=== PATIENT | male | born 1970 | race Caucasian/White ===

== ENCOUNTER 2023-04-09 12:30 | Day surgery (SDC) | payer OTHER ==
[~2023-04-09] VITALS: Ht 195.6 cm; Wt 128.5 kg
[2023-04-09] VITALS (27 sets, daily range): BP systolic 63–111; BP diastolic 37–83; PULSE 49–121; RESP 10–22; TEMP 97.3; O2SAT 92–99
[~2023-04-09 12:30] MED LIST: MIDAZolam 1mg/ml 10ml vial IV ONE; fentaNYL/PF 50MCG/1 ML 2ML syringe IV ONE; normal saline 1000ml 1,000 ML IV SCH
[2023-04-09] MEDS ORDERED: AMI200T PO (12:53)
[2023-04-09] MEDS ORDERED: BISO5TAB20 PO (12:53)
[2023-04-09] MEDS ORDERED: SPIR25TA5 PO (12:53)
[2023-04-09] MEDS ORDERED: RIVA20TA PO (12:53)
[2023-04-09 13:04] LABS: INR 1.3 INR; PROTHROMBIN TIME 13.9 SECONDS (9.0-12.0)
[2023-04-09] MEDS ORDERED: ONDA4TAB12 PO (21:57)
== END 2023-04-09 18:30 | disposition home or self-care (01) ==
LOC: SSTAY O 12:30
PROVIDERS: ATTEND Student in an Organized Health Care Education/Training Program
DX: I48.91 Unspecified atrial fibrillation (principal); I42.9 Cardiomyopathy, unspecified; I34.0 Nonrheumatic mitral (valve) insufficiency; E78.5 Hyperlipidemia, unspecified; Z79.899 Other long term (current) drug therapy; Z88.1 Allergy status to other antibiotic agents
CPT/HCPCS: 36415; 85610; 92960; 93005; 93312; 94760; J2250; J3010; J7030; A4620

== ENCOUNTER 2023-04-09 19:02 | Emergency (ER) | payer OTHER ==
[~2023-04-09] VITALS: Ht 195.6 cm; Wt 124.1 kg
[~2023-04-09 19:02] MED LIST changes: +AMI200T PO; +BISO5TAB20 PO; -MIDAZolam 1mg/ml 10ml vial IV ONE; +RIVA20TA PO; +SPIR25TA5 PO; -fentaNYL/PF 50MCG/1 ML 2ML syringe IV ONE; -normal saline 1000ml 1,000 ML IV SCH
[2023-04-09 19:05] VITALS: TEMP 98.8
[2023-04-09] MEDS ORDERED: normal saline 1000ml 1,000 ML IV ONE (19:15)
[2023-04-09] MEDS: normal saline 500ml IV soln 500 ML IV SCH ×2 (19:24→21:47)
[2023-04-09] MEDS ORDERED: ondansetron/PF 4mg/2ml inj IV ONE (19:30)
[2023-04-09 20:10] LABS: BASOPHILS % (AUTO) 0.2 % (0-1); EOSINOPHILS % (AUTO) 0 % (0-6); HEMATOCRIT 47.7 % (42.0-52.0); HEMOGLOBIN 16.2 g/dl (14.0-17.9); LYMPHOCYTES # (AUTO) 0.6 X10'3 (1.1-4.8); LYMPHOCYTES % (AUTO) 4.6 % (21-51); MEAN CORPUSCULAR HEMOGLOBIN 29.8 PG (27.0-31.0); MEAN CORPUSCULAR HGB CONC 33.8 g/dL (33.0-36.5); MEAN CORPUSCULAR VOLUME 88.2 FL (78-98); MEAN PLATELET VOLUME 8.8 FL (7.4-10.4); MONOCYTES # (AUTO) 0.4 X10'3 (0-0.9); MONOCYTES % (AUTO) 3.2 % (2-12); NEUTROPHILS # (AUTO) 11.5 X10'3 (1.8-7.7); PLATELET COUNT 215 X10'3 (140-440); RED BLOOD COUNT 5.41 X10'6 (4.70-6.10); RED CELL DISTRIBUTION WIDTH 13.8 % (11.5-14.5); WHITE BLOOD COUNT 12.5 X10'3 (4.5-11.0)
[2023-04-09 20:15] LABS: ALANINE AMINOTRANSFERASE 40 U/L (12-78); ALBUMIN 3.6 G/DL (3.4-5.0); ALBUMIN/GLOBULIN RATIO 1.3 (1.1-1.5); ALKALINE PHOSPHATASE 47 IU/L (46-116); ANION GAP 9 (8-16); ASPARTATE AMINO TRANSFERASE 29 U/L (10-37); BILIRUBIN,TOTAL 1.9 MG/DL (0.1-1.0); BLOOD UREA NITROGEN 18 MG/DL (7-18); BUN/CREATININE RATIO 9.7 (10.0-20.0); CHLORIDE 105 MMOL/L (99-107); CREATININE 1.86 MG/DL (0.60-1.10); GLUCOSE 150 MG/DL (70-104); POTASSIUM 4.6 MMOL/L (3.5-5.1); SODIUM 136 MMOL/L (135-145); TOTAL CARBON DIOXIDE 21.9 MMOL/L (24-32); TOTAL PROTEIN 6.4 G/DL (6.4-8.2); eCRCL 57 ML/MIN; eGFR 38 ML/MIN
[2023-04-09 20:16] LABS: MAGNESIUM 2.1 MG/DL (1.5-2.4)
[2023-04-09] MEDS ORDERED: ONDA4TAB12 PO (21:57)
[2023-04-09 22:02] VITALS: BP 106/73; PULSE 80; RESP 20; O2SAT 94
== END 2023-04-09 22:14 | disposition home or self-care (01) ==
LOC: ER 19:02
DX: I95.9 Hypotension, unspecified (principal); E86.0 Dehydration; R11.0 Nausea; R42 Dizziness and giddiness; Z88.1 Allergy status to other antibiotic agents; Z79.899 Other long term (current) drug therapy
CPT/HCPCS: 36415; 71045; 80053; 83735; 83880; 84145; 84484; 85025; 93005; 96360; 96361; 99285; J7030; J7040

== ENCOUNTER 2023-04-10 04:04 | Inpatient (IN) | payer OTHER ==
[~2023-04-10] VITALS: Ht 195.6 cm; Wt 120.7 kg
[~2023-04-10 04:04] MED LIST changes: +ONDA4TAB12 PO
[2023-04-10] MEDS ORDERED: normal saline 1000ML IV soln IVB ONE (04:35)
[2023-04-10] MEDS ORDERED: albuterol 2.5 MG/3 ML nebule NEB ONE (04:35)
[2023-04-10] MEDS ORDERED: methylPREDNISolone sod succ 125mg/2ml vial IV ONE (04:35)
[2023-04-10] MEDS ORDERED: iohexol 350MG/ML 100ml bottle IV ONE (04:41)
[2023-04-10 04:50] VITALS: PULSE 80; RESP 18; O2SAT 95
[2023-04-10 05:01] VITALS: PULSE 81; RESP 16; O2SAT 100
[2023-04-10] MEDS ORDERED: CefTRIAXone 2gm/D5W 50ml BAG 50 ML IV ONE (05:35)
[2023-04-10] MEDS ORDERED: azithromycin/NS 500mg/250ml 250 ML IV ONE (05:35)
[2023-04-10 07:01] LABS: BASOPHILS % (AUTO) 0.3 % (0-1); EOSINOPHILS % (AUTO) 0.3 % (0-6); HEMATOCRIT 48.1 % (42.0-52.0); LYMPHOCYTES # (AUTO) 1.9 X10'3 (1.1-4.8); LYMPHOCYTES % (AUTO) 11.1 % (21-51); MEAN CORPUSCULAR HEMOGLOBIN 29.6 PG (27.0-31.0); MEAN CORPUSCULAR HGB CONC 33.3 g/dL (33.0-36.5); MEAN CORPUSCULAR VOLUME 88.7 FL (78-98); MEAN PLATELET VOLUME 9.1 FL (7.4-10.4); MONOCYTES # (AUTO) 1.2 X10'3 (0-0.9); MONOCYTES % (AUTO) 6.9 % (2-12); NEUTROPHILS # (AUTO) 14.1 X10'3 (1.8-7.7); NEUTROPHILS % (AUTO) 81.4 % (42-75); PLATELET COUNT 201 X10'3 (140-440); RED BLOOD COUNT 5.42 X10'6 (4.70-6.10); RED CELL DISTRIBUTION WIDTH 13.7 % (11.5-14.5); WHITE BLOOD COUNT 17.3 X10'3 (4.5-11.0)
[2023-04-10 07:21] LABS: ALANINE AMINOTRANSFERASE 34 U/L (12-78); ALBUMIN 3.5 G/DL (3.4-5.0); ALBUMIN/GLOBULIN RATIO 1.3 (1.1-1.5); ALKALINE PHOSPHATASE 46 IU/L (46-116); ANION GAP 11 (8-16); ASPARTATE AMINO TRANSFERASE 17 U/L (10-37); BILIRUBIN,TOTAL 2.4 MG/DL (0.1-1.0); BLOOD UREA NITROGEN 19 MG/DL (7-18); BUN/CREATININE RATIO 12.5 (10.0-20.0); CALCIUM 9.1 MG/DL (8.5-10.1); CHLORIDE 104 MMOL/L (99-107); CREATININE 1.52 MG/DL (0.60-1.10); GLUCOSE 102 MG/DL (70-104); MAGNESIUM 2.1 MG/DL (1.5-2.4); SODIUM 136 MMOL/L (135-145); TOTAL PROTEIN 6.3 G/DL (6.4-8.2); eCRCL 70 ML/MIN; eGFR 48 ML/MIN
[2023-04-10] MEDS ORDERED: acetaminophen 325mg tablet PO PRN ×2 (10:15)
[2023-04-10] MEDS ORDERED: magnesium 2GM in 50ml NS 50 ML IV PRN (10:15)
[2023-04-10] MEDS ORDERED: magnesium 4gm in 100ml NS 100 ML IV PRN (10:15)
[2023-04-10] MEDS ORDERED: mag hydrox/Alum hydrox/simeth 30ml oral suspension PO PRN (10:15)
[2023-04-10] MEDS ORDERED: ondansetron/PF 4mg/2ml inj IV PRN (10:15)
[2023-04-10] MEDS ORDERED: morphine 2 MG/ML inj. syringe IV PRN ×2 (10:15)
[2023-04-10] MEDS ORDERED: potassium Cl 40MEQ/1/2NS 520ml 520 ML IV PRN (10:15)
[2023-04-10] MEDS ORDERED: CEFTRIAXONE 500 MG VIAL IM SCH (10:30)
[2023-04-10 11:48] LABS: FREE T4 (FREE THYROXINE) 1.23 NG/DL (0.73-1.40)
--- NOTE | 2023-04-10 12:20 | NUR ---
PT IS IN BED EATING LUNCH. SPOUSE IS AT BEDSIDE. PT IS ON 2L NC AND SATING AT 95%. PT HAS NO COMPLAINTS ON PAIN OR DISCOMFORT AT THIS TIME.
[2023-04-10] MEDS: amiodarone 200mg tablet PO SCH ×2 (14:48→21:16)
[2023-04-10] MEDS: spironolactone 25 MG tablet PO SCH (14:50)
[2023-04-10] MEDS: rivaroxaban 20mg tablet PO SCH (18:02)
--- NOTE | 2023-04-10 18:04 | NUR ---
PT WITH SPOUSE AT BEDSIDE. PT EATING DINNER. 1800 XARLETTO GIVEN. PT WOULD LIKE TO BE MOVED TO A HOSPITAL BED SOON POSSIBLE. PT IS FEELING TIRED. NO COMPLAINTS OF PAIN OR DISCOMFORT AT THIS TIME.
[2023-04-10 19:33] VITALS: BP 102/71; PULSE 73; RESP 17; TEMP 97.2; O2SAT 96
[2023-04-10] MEDS: K and/or MAG REPLACEMENT MC SCH (19:58)
[2023-04-10 20:00] VITALS: RESP 16; O2SAT 95
[2023-04-10] MEDS: docusate sod 100mg capsule PO SCH (20:00)
[2023-04-10] MEDS: ondansetron 4mg rapidly disintigrating tab PO SCH (20:04)
[2023-04-10] MEDS: furosemide 40mg/4ml inj IV SCH (20:10)
[2023-04-10] MEDS: carVEDilol 3.125mg tablet PO SCH (20:10)
[2023-04-10 21:15] VITALS: BP 128/83; PULSE 69
[2023-04-10 22:00] VITALS: BP 96/51; PULSE 76; RESP 20; TEMP 97.6; O2SAT 96
[2023-04-11] VITALS (8 sets, daily range): BP systolic 92–111; BP diastolic 49–72; PULSE 65–81; RESP 16–24; TEMP 97.2–97.5; O2SAT 95–97
[2023-04-11] MEDS: CefTRIAXone/D5W-Rocephin 1gm 50 ML IV SCH (08:00)
[2023-04-11] MEDS: K and/or MAG REPLACEMENT MC SCH ×2 (08:00→19:43)
[2023-04-11] MEDS: furosemide 40mg/4ml inj IV SCH ×2 (08:00→20:00)
[2023-04-11] MEDS: azithromycin/NS 500mg/250ml 250 ML IV SCH (08:00)
[2023-04-11] MEDS ORDERED: spironolactone 25 MG tablet PO SCH (08:30)
[2023-04-11] MEDS: ondansetron 4mg rapidly disintigrating tab PO SCH ×2 (08:51→19:41)
[2023-04-11] MEDS: EMPAGLIFLOZIN 10 MG TABLET PO SCH (08:51)
[2023-04-11] MEDS: carVEDilol 3.125mg tablet PO SCH ×2 (08:51→20:00)
[2023-04-11] MEDS: docusate sod 100mg capsule PO SCH ×2 (08:51→19:41)
[2023-04-11] MEDS: amiodarone 200mg tablet PO SCH ×3 (08:51→20:49)
[2023-04-11] MEDS: spironolactone 25 MG tablet PO SCH (08:54)
[2023-04-11 09:19] LABS: BASOPHILS % (AUTO) 0.1 % (0-1); EOSINOPHILS % (AUTO) 0 % (0-6); HEMATOCRIT 46.5 % (42.0-52.0); HEMOGLOBIN 15.6 g/dl (14.0-17.9); LYMPHOCYTES # (AUTO) 1.2 X10'3 (1.1-4.8); MEAN CORPUSCULAR HEMOGLOBIN 29.5 PG (27.0-31.0); MEAN CORPUSCULAR HGB CONC 33.5 g/dL (33.0-36.5); MEAN CORPUSCULAR VOLUME 88.2 FL (78-98); MEAN PLATELET VOLUME 9.2 FL (7.4-10.4); MONOCYTES # (AUTO) 1.1 X10'3 (0-0.9); MONOCYTES % (AUTO) 5.4 % (2-12); NEUTROPHILS # (AUTO) 17.9 X10'3 (1.8-7.7); NEUTROPHILS % (AUTO) 88.5 % (42-75); PLATELET COUNT 191 X10'3 (140-440); RED BLOOD COUNT 5.27 X10'6 (4.70-6.10); RED CELL DISTRIBUTION WIDTH 13.5 % (11.5-14.5); WHITE BLOOD COUNT 20.2 X10'3 (4.5-11.0)
[2023-04-11 09:23] LABS: HEMOGLOBIN A1C 5.4 % (4.5-6.2)
[2023-04-11 10:15] LABS: ALANINE AMINOTRANSFERASE 29 U/L (12-78); ALBUMIN 3.5 G/DL (3.4-5.0); ALBUMIN/GLOBULIN RATIO 1.3 (1.1-1.5); ALKALINE PHOSPHATASE 44 IU/L (46-116); ANION GAP 10 (8-16); ASPARTATE AMINO TRANSFERASE 18 U/L (10-37); BILIRUBIN,TOTAL 2.1 MG/DL (0.1-1.0); BLOOD UREA NITROGEN 26 MG/DL (7-18); BUN/CREATININE RATIO 17.4 (10.0-20.0); CALCIUM 9.2 MG/DL (8.5-10.1); CHLORIDE 103 MMOL/L (99-107); CHOL/HDL RATIO 4.2 (0.00-4.99); CHOLESTEROL 215 MG/DL (0-200); CREATININE 1.49 MG/DL (0.60-1.10); GLUCOSE 137 MG/DL (70-104); HDL CHOLESTEROL 51 MG/DL (35-60); LDL CHOLESTEROL 148 MG/DL (50-100); POTASSIUM 4.6 MMOL/L (3.5-5.1); SODIUM 136 MMOL/L (135-145); THYROID STIMULATING HORMONE 2.23 ulU/ml (0.34-4.50); TOTAL CARBON DIOXIDE 23.5 MMOL/L (24-32); TOTAL PROTEIN 6.3 G/DL (6.4-8.2); TRIGLYCERIDES 80 MG/DL (20-135); eCRCL 71 ML/MIN; eGFR 49 ML/MIN
[2023-04-11] MEDS: rivaroxaban 20mg tablet PO SCH (18:15)
[2023-04-12 06:00] VITALS: BP 95/53; PULSE 65; RESP 20; TEMP 98.7; O2SAT 96
--- NOTE | 2023-04-12 06:25 | NUR ---
Problems reprioritized. Patient report given, questions answered & plan of care reviewed with Jose Armando RICHMOND.
[2023-04-12 07:30] LABS: BASOPHILS # (AUTO) 0.1 X10'3 (0-0.2); BASOPHILS % (AUTO) 0.6 % (0-1); EOSINOPHILS # (AUTO) 0.1 X10'3 (0-0.9); EOSINOPHILS % (AUTO) 0.5 % (0-6); HEMATOCRIT 43.3 % (42.0-52.0); HEMOGLOBIN 14.7 g/dl (14.0-17.9); LYMPHOCYTES # (AUTO) 1.7 X10'3 (1.1-4.8); LYMPHOCYTES % (AUTO) 16.1 % (21-51); MEAN CORPUSCULAR HEMOGLOBIN 29.9 PG (27.0-31.0); MEAN CORPUSCULAR VOLUME 87.9 FL (78-98); MEAN PLATELET VOLUME 8.6 FL (7.4-10.4); MONOCYTES % (AUTO) 9.2 % (2-12); NEUTROPHILS % (AUTO) 73.6 % (42-75); PLATELET COUNT 169 X10'3 (140-440); RED BLOOD COUNT 4.92 X10'6 (4.70-6.10); RED CELL DISTRIBUTION WIDTH 13.3 % (11.5-14.5); WHITE BLOOD COUNT 10.8 X10'3 (4.5-11.0)
[2023-04-12 07:57] LABS: ALANINE AMINOTRANSFERASE 27 U/L (12-78); ALBUMIN 3.2 G/DL (3.4-5.0); ALBUMIN/GLOBULIN RATIO 1.3 (1.1-1.5); ALKALINE PHOSPHATASE 41 IU/L (46-116); ANION GAP 7 (8-16); ASPARTATE AMINO TRANSFERASE 16 U/L (10-37); BILIRUBIN,TOTAL 3.3 MG/DL (0.1-1.0); BLOOD UREA NITROGEN 26 MG/DL (7-18); BUN/CREATININE RATIO 16.7 (10.0-20.0); CALCIUM 8.5 MG/DL (8.5-10.1); CHLORIDE 103 MMOL/L (99-107); CREATININE 1.56 MG/DL (0.60-1.10); GLUCOSE 97 MG/DL (70-104); POTASSIUM 3.9 MMOL/L (3.5-5.1); SODIUM 137 MMOL/L (135-145); TOTAL CARBON DIOXIDE 27.5 MMOL/L (24-32); TOTAL PROTEIN 5.7 G/DL (6.4-8.2); eCRCL 68 ML/MIN; eGFR 47 ML/MIN
[2023-04-12 08:00] VITALS: RESP 24; O2SAT 96
[2023-04-12] MEDS: CefTRIAXone/D5W-Rocephin 1gm 50 ML IV SCH (08:00)
[2023-04-12] MEDS: spironolactone 25 MG tablet PO SCH (08:00)
[2023-04-12] MEDS: K and/or MAG REPLACEMENT MC SCH ×2 (08:00→20:07)
[2023-04-12] MEDS: furosemide 40mg/4ml inj IV SCH (08:38)
[2023-04-12] MEDS: ondansetron 4mg rapidly disintigrating tab PO SCH ×2 (08:39→20:00)
[2023-04-12] MEDS: azithromycin/NS 500mg/250ml 250 ML IV SCH (08:39)
[2023-04-12] MEDS: docusate sod 100mg capsule PO SCH ×2 (08:39→20:00)
[2023-04-12] MEDS: amiodarone 200mg tablet PO SCH ×3 (08:39→21:11)
[2023-04-12] MEDS: carVEDilol 3.125mg tablet PO SCH ×2 (08:39→20:00)
[2023-04-12] MEDS: EMPAGLIFLOZIN 10 MG TABLET PO SCH (08:39)
[2023-04-12 11:00] VITALS: BP 94/60; PULSE 61; RESP 16; TEMP 97.8; O2SAT 96
[2023-04-12 18:00] VITALS: BP 100/69; PULSE 57; RESP 19; TEMP 98.9; O2SAT 100
[2023-04-12] MEDS: rivaroxaban 20mg tablet PO SCH (18:00)
[2023-04-12 20:00] VITALS: RESP 19; O2SAT 100
[2023-04-12 22:39] VITALS: BP 97/54; PULSE 62; RESP 20; TEMP 98.2; O2SAT 98
[2023-04-13] VITALS (8 sets, daily range): BP systolic 91–106; BP diastolic 49–72; PULSE 54–61; RESP 16–25; TEMP 97.9–98.3; O2SAT 90–100
[2023-04-13 07:33] LABS: BASOPHILS # (AUTO) 0.1 X10'3 (0-0.2); BASOPHILS % (AUTO) 0.7 % (0-1); EOSINOPHILS # (AUTO) 0.2 X10'3 (0-0.9); EOSINOPHILS % (AUTO) 3.1 % (0-6); HEMATOCRIT 44.8 % (42.0-52.0); LYMPHOCYTES # (AUTO) 1.6 X10'3 (1.1-4.8); LYMPHOCYTES % (AUTO) 20.4 % (21-51); MEAN CORPUSCULAR HEMOGLOBIN 29.5 PG (27.0-31.0); MEAN CORPUSCULAR HGB CONC 33.4 g/dL (33.0-36.5); MEAN CORPUSCULAR VOLUME 88.4 FL (78-98); MONOCYTES # (AUTO) 0.7 X10'3 (0-0.9); MONOCYTES % (AUTO) 9.3 % (2-12); NEUTROPHILS # (AUTO) 5.3 X10'3 (1.8-7.7); NEUTROPHILS % (AUTO) 66.5 % (42-75); PLATELET COUNT 167 X10'3 (140-440); RED BLOOD COUNT 5.07 X10'6 (4.70-6.10); RED CELL DISTRIBUTION WIDTH 13.6 % (11.5-14.5)
[2023-04-13 07:44] LABS: ALANINE AMINOTRANSFERASE 31 U/L (12-78); ALBUMIN 3.1 G/DL (3.4-5.0); ALBUMIN/GLOBULIN RATIO 1.1 (1.1-1.5); ALKALINE PHOSPHATASE 42 IU/L (46-116); ANION GAP 7 (8-16); ASPARTATE AMINO TRANSFERASE 13 U/L (10-37); BILIRUBIN,TOTAL 2.6 MG/DL (0.1-1.0); BLOOD UREA NITROGEN 22 MG/DL (7-18); BUN/CREATININE RATIO 17.5 (10.0-20.0); CALCIUM 8.8 MG/DL (8.5-10.1); CHLORIDE 104 MMOL/L (99-107); CREATININE 1.26 MG/DL (0.60-1.10); GLUCOSE 93 MG/DL (70-104); POTASSIUM 3.9 MMOL/L (3.5-5.1); SODIUM 137 MMOL/L (135-145); TOTAL CARBON DIOXIDE 26.4 MMOL/L (24-32); TOTAL PROTEIN 5.8 G/DL (6.4-8.2); eCRCL 84 ML/MIN; eGFR 60 ML/MIN
[2023-04-13] MEDS: spironolactone 25 MG tablet PO SCH (08:00)
[2023-04-13] MEDS: docusate sod 100mg capsule PO SCH ×2 (08:00→19:57)
[2023-04-13] MEDS: ondansetron 4mg rapidly disintigrating tab PO SCH ×2 (08:00→19:57)
[2023-04-13] MEDS: CefTRIAXone/D5W-Rocephin 1gm 50 ML IV SCH (08:00)
[2023-04-13] MEDS: K and/or MAG REPLACEMENT MC SCH ×2 (08:00→20:00)
[2023-04-13] MEDS: azithromycin/NS 500mg/250ml 250 ML IV SCH (08:00)
[2023-04-13] MEDS: amiodarone 200mg tablet PO SCH ×2 (09:46→13:47)
[2023-04-13] MEDS: EMPAGLIFLOZIN 10 MG TABLET PO SCH (09:46)
[2023-04-13] MEDS: furosemide 40mg/4ml inj IV SCH (09:50)
[2023-04-13] MEDS: carVEDilol 3.125mg tablet PO SCH ×2 (09:50→19:57)
[2023-04-13 14:50] LABS: URINE AMPHETAMINE SCREEN NEGATIVE (Neg); URINE BARBITUATE SCREEN NEGATIVE (Neg); URINE BENZODIAZEPINES SCREEN NEGATIVE (Neg); URINE CANNABINOID SCREEN NEGATIVE (Neg); URINE COCAINE SCREEN NEGATIVE (Neg); URINE METHADONE SCREEN NEGATIVE (Neg); URINE OPIATE SCREEN NEGATIVE (Neg); URINE PHENCYCLIDINE SCREEN NEGATIVE (Neg)
[2023-04-13] MEDS ORDERED: AMIO200T72 PO (15:30)
[2023-04-13 16:53] LABS: HIV ANTIBODY 1&2 RAPID NON-REACTIVE (Neg)
--- NOTE | 2023-04-13 18:48 | NUR ---
Patient in room PCU 3028. I have received report from VERONIKA RICHMOND and had the opportunity to ask questions and assume patient care.
[2023-04-13] MEDS: rivaroxaban 20mg tablet PO SCH (19:56)
[2023-04-14] VITALS (7 sets, daily range): BP systolic 90–107; BP diastolic 45–60; PULSE 51–59; RESP 12–25; TEMP 97.6–97.9; O2SAT 96–99
[2023-04-14 06:15] LABS: BASOPHILS % (AUTO) 0.7 % (0-1); EOSINOPHILS # (AUTO) 0.3 X10'3 (0-0.9); EOSINOPHILS % (AUTO) 4.7 % (0-6); HEMATOCRIT 45.3 % (42.0-52.0); HEMOGLOBIN 15.5 g/dl (14.0-17.9); LYMPHOCYTES # (AUTO) 1.6 X10'3 (1.1-4.8); LYMPHOCYTES % (AUTO) 23.1 % (21-51); MEAN CORPUSCULAR HEMOGLOBIN 29.7 PG (27.0-31.0); MEAN CORPUSCULAR HGB CONC 34.1 g/dL (33.0-36.5); MEAN CORPUSCULAR VOLUME 87.1 FL (78-98); MEAN PLATELET VOLUME 8.5 FL (7.4-10.4); MONOCYTES # (AUTO) 0.6 X10'3 (0-0.9); MONOCYTES % (AUTO) 9.1 % (2-12); NEUTROPHILS # (AUTO) 4.3 X10'3 (1.8-7.7); NEUTROPHILS % (AUTO) 62.4 % (42-75); PLATELET COUNT 185 X10'3 (140-440); RED CELL DISTRIBUTION WIDTH 13.5 % (11.5-14.5); WHITE BLOOD COUNT 6.8 X10'3 (4.5-11.0)
--- NOTE | 2023-04-14 06:32 | NUR ---
Problems reprioritized. Patient report given, questions answered & plan of care reviewed with ELY RICHMOND.
[2023-04-14 06:33] LABS: ALANINE AMINOTRANSFERASE 30 U/L (12-78); ALBUMIN 3.1 G/DL (3.4-5.0); ALBUMIN/GLOBULIN RATIO 1.1 (1.1-1.5); ALKALINE PHOSPHATASE 44 IU/L (46-116); ANION GAP 6 (8-16); ASPARTATE AMINO TRANSFERASE 21 U/L (10-37); BILIRUBIN,TOTAL 2.5 MG/DL (0.1-1.0); BLOOD UREA NITROGEN 18 MG/DL (7-18); BUN/CREATININE RATIO 14.8 (10.0-20.0); CALCIUM 8.7 MG/DL (8.5-10.1); CHLORIDE 104 MMOL/L (99-107); CREATININE 1.22 MG/DL (0.60-1.10); GLUCOSE 95 MG/DL (70-104); POTASSIUM 3.9 MMOL/L (3.5-5.1); SODIUM 136 MMOL/L (135-145); TOTAL CARBON DIOXIDE 26.4 MMOL/L (24-32); eCRCL 87 ML/MIN; eGFR 62 ML/MIN
[2023-04-14] MEDS: ondansetron 4mg rapidly disintigrating tab PO SCH ×2 (08:00→20:52)
[2023-04-14] MEDS: carVEDilol 3.125mg tablet PO SCH ×2 (08:00→20:52)
[2023-04-14] MEDS: docusate sod 100mg capsule PO SCH (08:00)
[2023-04-14] MEDS: K and/or MAG REPLACEMENT MC SCH ×2 (08:00→20:00)
[2023-04-14] MEDS: EMPAGLIFLOZIN 10 MG TABLET PO SCH (08:17)
[2023-04-14] MEDS: spironolactone 25 MG tablet PO SCH (08:17)
[2023-04-14] MEDS: lisinopril 5mg tablet PO SCH (08:19)
--- NOTE | 2023-04-14 08:21 | NUR ---
PO meds administered with Nel RICHMOND present. Declined PO stool softener states LBM today 04/14.
[2023-04-14] MEDS: furosemide 40mg/4ml inj IV SCH (08:24)
[2023-04-14] MEDS: CefTRIAXone/D5W-Rocephin 1gm 50 ML IV SCH (08:27)
[2023-04-14] MEDS: azithromycin/NS 500mg/250ml 250 ML IV SCH (08:27)
--- NOTE | 2023-04-14 15:28 | NUR ---
Student documentation: I have reviewed all interventions, assessments performed and documented by Kareem magdaleno Student nurse at [facility] .
--- NOTE | 2023-04-14 16:19 | NUR ---
Provided education on heart healthy diet, patient and spouse at bedside receptive to education and verbalized understanding. Instructor Dr. Johnson present as well.
--- NOTE | 2023-04-14 18:41 | NUR ---
Problems reprioritized. Patient report given, questions answered & plan of care reviewed with Ava RICHMOND, patient stable at transfer of care.
[2023-04-14] MEDS: rivaroxaban 20mg tablet PO SCH (20:52)
[2023-04-15 03:00] VITALS: BP 97/53; PULSE 53; RESP 16; TEMP 98.2; O2SAT 97
[2023-04-15 04:15] VITALS: BP 98/54; PULSE 54; RESP 23; TEMP 97.6; O2SAT 96
[2023-04-15 06:00] VITALS: BP 96/55; PULSE 56; RESP 15; TEMP 98.3; O2SAT 98
[2023-04-15 06:20] LABS: BASOPHILS # (AUTO) 0.1 X10'3 (0-0.2); BASOPHILS % (AUTO) 1.1 % (0-1); EOSINOPHILS # (AUTO) 0.3 X10'3 (0-0.9); EOSINOPHILS % (AUTO) 4.5 % (0-6); HEMATOCRIT 46.1 % (42.0-52.0); HEMOGLOBIN 15.6 g/dl (14.0-17.9); LYMPHOCYTES # (AUTO) 1.6 X10'3 (1.1-4.8); LYMPHOCYTES % (AUTO) 21.5 % (21-51); MEAN CORPUSCULAR HEMOGLOBIN 29.6 PG (27.0-31.0); MEAN PLATELET VOLUME 8.3 FL (7.4-10.4); MONOCYTES # (AUTO) 0.8 X10'3 (0-0.9); MONOCYTES % (AUTO) 10.6 % (2-12); NEUTROPHILS # (AUTO) 4.5 X10'3 (1.8-7.7); NEUTROPHILS % (AUTO) 62.3 % (42-75); PLATELET COUNT 203 X10'3 (140-440); RED CELL DISTRIBUTION WIDTH 13.3 % (11.5-14.5); WHITE BLOOD COUNT 7.3 X10'3 (4.5-11.0)
--- NOTE | 2023-04-15 06:51 | NUR ---
Problems reprioritized. Patient report given, questions answered & plan of care reviewed with Nel RICHMOND. Pt stable at shift change.
[2023-04-15 07:06] LABS: ALANINE AMINOTRANSFERASE 34 U/L (12-78); ALBUMIN 3.1 G/DL (3.4-5.0); ALBUMIN/GLOBULIN RATIO 1.1 (1.1-1.5); ALKALINE PHOSPHATASE 43 IU/L (46-116); ANION GAP 6 (8-16); ASPARTATE AMINO TRANSFERASE 16 U/L (10-37); BILIRUBIN,TOTAL 2.4 MG/DL (0.1-1.0); BLOOD UREA NITROGEN 18 MG/DL (7-18); BUN/CREATININE RATIO 12.6 (10.0-20.0); CALCIUM 8.8 MG/DL (8.5-10.1); CHLORIDE 102 MMOL/L (99-107); CREATININE 1.43 MG/DL (0.60-1.10); GLUCOSE 95 MG/DL (70-104); POTASSIUM 4.1 MMOL/L (3.5-5.1); SODIUM 135 MMOL/L (135-145); TOTAL CARBON DIOXIDE 26.6 MMOL/L (24-32); eCRCL 74 ML/MIN; eGFR 52 ML/MIN
[2023-04-15 08:00] VITALS: RESP 15; O2SAT 98
[2023-04-15] MEDS: spironolactone 25 MG tablet PO SCH (08:00)
[2023-04-15] MEDS: K and/or MAG REPLACEMENT MC SCH (08:00)
[2023-04-15] MEDS ORDERED: azithromycin 250mg tablet PO SCH (08:00)
[2023-04-15] MEDS: ondansetron 4mg rapidly disintigrating tab PO SCH (08:00)
[2023-04-15 11:00] VITALS: BP 95/48; PULSE 57; RESP 16; TEMP 98.4; O2SAT 97
[2023-04-15 11:01] VITALS: BP_SYST 90; PULSE 55
[2023-04-15] MEDS: lisinopril 5mg tablet PO SCH (11:01)
[2023-04-15] MEDS: carVEDilol 3.125mg tablet PO SCH (12:05)
[2023-04-15] MEDS: EMPAGLIFLOZIN 10 MG TABLET PO SCH (12:05)
[2023-04-15] MEDS ORDERED: EMPA10TA PO (13:26)
[2023-04-15] MEDS ORDERED: COR3.125T PO (13:26)
[2023-04-15] MEDS ORDERED: LISI5TAB22 PO (13:26)
[2023-04-15] MEDS ORDERED: FURO20TA4 PO (13:26)
[2023-04-15] MEDS ORDERED: AMIO200T72 PO (13:48)
--- NOTE | 2023-04-15 14:04 | NUR ---
Paged Dr. Killian regarding pts concern for this medication. [facility] insurance will not cover this medicine. 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 PAGER ID: [phone] MESSAGE: [id number], Nereida Stubbs. Pts pharmacy called and said their insurance wont cover Jardiance, can you call me back please? Nel [facility] [id number]
--- NOTE | 2023-04-15 17:23 | NUR ---
Pt stable for discharge per Dr. Killian. All discharge instructions reviewed with patient and all questions answered, pt verbalized understanding. No new medications ordered. PIV discontinued, cannula intact. Tele discontinued. All belongings collected and sent with patient. Wheeled to lobby via nursing staff and picked up by spouse.
[2023-04-16] MEDS ORDERED: furosemide 20 MG/2 ML vial IV SCH (08:00)
== END 2023-04-15 14:30 | disposition home or self-care (01) | DRG 871 ==
LOC: ER 04:05 → ED HOLD 12:19 → PCU 3S 19:28
PROVIDERS: ADMIT Family Medicine; ATTEND Family Medicine
PROC: B32T1ZZ Computerized Tomography (CT Scan) of Left Pulmonary Artery using Low Osmolar Contrast (ICD-10-PCS; principal; 2023-04-10)
PROC: B3201ZZ Computerized Tomography (CT Scan) of Thoracic Aorta using Low Osmolar Contrast (ICD-10-PCS; 2023-04-10)
PROC: B32S1ZZ Computerized Tomography (CT Scan) of Right Pulmonary Artery using Low Osmolar Contrast (ICD-10-PCS; 2023-04-10)
DX: A41.9 Sepsis, unspecified organism (principal); I21.A1 Myocardial infarction type 2; J18.9 Pneumonia, unspecified organism; I50.41 Acute combined systolic (congestive) and diastolic (congestive) heart failure; N17.9 Acute kidney failure, unspecified; J98.11 Atelectasis; E04.2 Nontoxic multinodular goiter; I48.91 Unspecified atrial fibrillation; I05.2 Rheumatic mitral stenosis with insufficiency; R09.02 Hypoxemia; Z20.822 Contact with and (suspected) exposure to COVID-19; I25.10 Atherosclerotic heart disease of native coronary artery without angina pectoris; B33.24 Viral cardiomyopathy; N18.30 Chronic kidney disease, stage 3 unspecified; Z88.1 Allergy status to other antibiotic agents; Z79.899 Other long term (current) drug therapy
CPT/HCPCS: 36415; 71045; 71275; 80053; 80061; 80305; 83036; 83605; 83735; 83880; 84145; 84439; 84443; 84484; 85025; 85651; 86703; 87040; 87081; 87502; 87503; 87535; 87811; 94640; 94760; 99285; A4615; G0378; J0456; J0696; J1940; J2930; J3490; J7030; J7040; Q9967